=== PATIENT | female | born 1985 ===

== ENCOUNTER 2016-09-30 20:43 | Emergency (ER) | payer SELFPAY ==
[2016-09-30 21:14] LABS: SPECIFIC GRAVITY 1.015 (1.001-1.030); URINE BILIRUBIN NEGATIVE (NEGATIVE); URINE BLOOD 3+ (NEGATIVE); URINE GLUCOSE (UA) NEGATIVE (NEGATIVE); URINE LEUKOCYTE ESTERASE 2+ (NEGATIVE); URINE NITRITE NEGATIVE (NEGATIVE); URINE PROTEIN 1+ (NEGATIVE); URINE UROBILINOGEN NORMAL (0-1 mg/dl)
[2016-09-30 21:16] LABS: URINE APPEARANCE CLOUDY; URINE COLOR LIGHT YELLOW
[2016-09-30 21:31] LABS: URINE BACTERIA 2+
[2016-09-30 21:32] LABS: URINE WBC 80-100 /hpf
[2016-09-30] MEDS ORDERED: ACETAMINOPHEN 500 MG TABLET ONE (21:39)
[2016-09-30] MEDS ORDERED: CEFTRIAXONE SODIUM 1 G VIAL ONE (21:40)
[2016-09-30] MEDS ORDERED: PHENAZOPYRIDINE HCL 200 MG TABLET ONE (21:40)
== END 2016-09-30 22:14 | disposition home or self-care (01) ==
LOC: ED 20:43
DX: N39.0 Urinary tract infection, site not specified (principal); R11.0 Nausea; E66.01 Morbid (severe) obesity due to excess calories
CPT/HCPCS: 87086; 81001; 99283 ×2; 96372; A9270 ×2; J0696